=== PATIENT | female | born 1950 | race Caucasian/White ===

== ENCOUNTER 2019-10-05 20:25 | Emergency (ER) | payer OTHER ==
[2019-10-05] MEDS ORDERED: SODIUM CHLORIDE 0.9% 500 ML INFUS.BAG IV ONE (20:28)
[2019-10-05] MEDS ORDERED: TETRACAINE 0.5% HCL 0.6ML DROPPER.BOTTLE OU ONE (20:28)
[2019-10-05] MEDS ORDERED: FLUORESCEIN NA 1 EA STRIP OU ONE (20:30)
[2019-10-05] MEDS ORDERED: TETRACAINE 0.5% OPHTH SOLN 2 ML BOTTLE ONE (20:30)
[2019-10-05] MEDS ORDERED: FLUORESCEIN NA 1 EA STRIP ONE (20:30)
[2019-10-05 20:44] VITALS: BP 123/61; PULSE 92; TEMP 98.4; BMI 20.3
--- NOTE | 2019-10-05 22:59 | PDOC ---
Documentation entered by Geovanny Laird SCRIBE, acting as scribe for Emma Keys MD. Emma Keys MD: This documentation has been prepared by the teteeEitan Angel, SCRIBE, under my direction and personally reviewed by me in its entirety. I confirm that the documentation accurately reflects all work, treatment, procedures, and medical decision making performed by me. History of Present Illness - General Chief Complaint: Eye Problem Stated Complaint: RIGHT EYE IRRITATION History Source: Patient Exam Limitations: No Limitations - History of Present Illness Initial Comments: 10/05/19 20:34 The patient is a 69 year old female with no significant past medical history who presents to the ED with irritation to her right eye. The patient states she was spraying Liquid[employer]ence deer and rabbit repellent outside her house when it ended up getting in her eye. The patient states she washed her eye out with water but still felt a slight burning sensation prompting her to come into the ED. The patient denies any change in vision or any other symptoms here in the ED. Past History - Medical History Allergies/Adverse Reactions: Allergies Allergy/AdvReac Type Severity Reaction Status Date / Time Sulfa (Sulfonamide Allergy Verified 10/05/19 20:28 Antibiotics) Home Medications: Ambulatory Orders Argenis Otc 10/05/19 Estradiol mg PO ASDIR 10/05/19 Review of Systems - Review of Systems Able to Perform ROS?: Yes Comments:: 10/05/19 20:35 GENERAL/CONSTITUTIONAL: No fever or chills. No weakness. HEAD, EYES, EARS, NOSE AND THROAT: +Burning sensation in right eye. No change in vision. No ear pain or discharge. No sore throat. CARDIOVASCULAR: No chest pain or shortness of breath. RESPIRATORY: No cough, wheezing, or hemoptysis. GASTROINTESTINAL: No nausea, vomiting, diarrhea or constipation. GENITOURINARY: No dysuria, frequency, or change in urination. MUSCULOSKELETAL: No joint or muscle swelling or pain. No neck or back pain. SKIN: No rash NEUROLOGIC: No headache, vertigo, loss of consciousness, or change in strength/sensation. ENDOCRINE: No increased thirst. No abnormal weight change. HEMATOLOGIC/LYMPHATIC: No anemia, easy bleeding, or history of blood clots. ALLERGIC/IMMUNOLOGIC: No hives or skin allergy. *Physical Exam - Physical Exam 10/05/19 20:51 GENERAL: Awake, alert, and fully oriented, in no acute distress HEAD: No signs of trauma EYES: PERRLA, EOMI, sclera anicteric, conjunctiva clear ENT: Auricles normal inspection, hearing grossly normal, nares patent, oropharynx clear without exudates. Moist mucosa NECK: Normal ROM, supple, no lymphadenopathy, JVD, or masses LUNGS: Breath sounds equal, clear to auscultation bilaterally. No wheezes, and no crackles HEART: Regular rate and rhythm, normal S1 and S2, no murmurs, rubs or gallops ABDOMEN: Soft, nontender, normoactive bowel sounds. No guarding, no rebound. No masses EXTREMITIES: Normal range of motion, no edema. No clubbing or cyanosis. No cords, erythema, or tenderness NEUROLOGICAL: Cranial nerves II through XII grossly intact. Normal speech, normal gait SKIN: Warm, Dry, normal turgor, no rashes or lesions noted. Medical Decision Making - Medical Decision Making 10/05/19 20:42 Pt comes with right eye irritation after getting exposure to liquid fence deer and rabbit repellant. Pt has no vision changes. She wears glasses and not contacts. She has minimal redness after flusghing her eyes out with water. Pt has no other complaints. I called [facility] poisons and they tell me that active ingredients are simply irritants, but not poisons and that there is nothing to do but flush. If irritation continues tomorrow, she can follow with ophthalmology as needed 10/05/19 20:54 eye washed out fluorescine exam normal. Pt will be discharged home with eye referrals as needed. Discharge - Discharge Information Problems reviewed: Yes Clinical Impression/Diagnosis: Chemical exposure of eye Condition: Improved Disposition: HOME - Admission No - Follow up/Referral Referrals: Roxy Hong MD [Staff Physician] - Crispin Baker MD [Staff Physician] - - Patient Discharge Instructions Patient Printed Discharge Instructions: DI for Chemical Eye Burn - Post Discharge Activity
== END 2019-10-05 21:10 | disposition home or self-care (01) ==
LOC: FER 20:25
DX: Z77.098 Contact with and (suspected) exposure to other hazardous, chiefly nonmedicinal, chemicals (principal)
CPT/HCPCS: 99283-25